=== PATIENT | female | born 1985 | race Caucasian/White ===

== ENCOUNTER 2023-12-18 14:58 | Emergency (ER) | payer SELFPAY ==
[2023-12-18 15:00] VITALS: BP 186/127; PULSE 95; RESP 16; TEMP 36.5; O2SAT 99
--- NOTE | 2023-12-18 15:06 | XR_ITS ---
WS: [id number] XR chest 1V portable 95000 REASON FOR EXAM: Chest pain FINDINGS: Chest appears similar to previous examination 05/22/2019. Mild tortuosity of the thoracic aorta. Mild cardiomegaly. Calcified granulomas disease in both hemithoraces. No acute/subacute pulmonary parenchymal or pleural abnormality. No significant abnormality of the bony thorax. XR/XR chest 1V portable 95476 IMPRESSION: Stable chest with no acute abnormality.
--- NOTE | 2023-12-18 15:07 | ECG_ITS ---
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 Measurements Intervals [place] Rate: 87 P: 47 AL: 144 QRS: 54 QRSD: 85 T: 59 QT: 342 QTc: 413 Interpretive Statements SINUS RHYTHM Poor R wave progression Compared to ECG 05/22/2019 18:13:42 Sinus tachycardia no longer present Electronically Signed On 12-18-2023 19:58:31 CDT by Yayo Perez M.D. [id number]
--- NOTE | 2023-12-18 15:14 | ED_ITS ---
HPI - Chest Pain 2 General: Chief Complaint: Chest Pain Stated Complaint: chest pain Time Seen by Provider: 12/18/23 15:01 History of Present Illness: 38-year-old female with a history of hyp ertension who presents to the emergency room with chest discomfort. She states she was getting ready for work and took a shower and when she got out she felt lightheaded and had fairly severe chest pressure. This got a little bit better. She says now she does have some mild pressure in her central chest. She says she felt like maybe her blood pressure got very high. No known cardiac history. No cough. No abdominal pain. No nausea or vomiting. No diaphoresis. No altered mental status. No focal motor deficits. Review of Systems 2 Narrative: Constitutional symptoms: Negative except as documented in HPI. Skin symptoms: Negative except as documented in HPI. Eye symptoms: Negative except as documented in HPI. ENMT symptoms: Negative except as documented in HPI. Respiratory symptoms: Negative except as documented in HPI. Cardiovascular symptoms: Negative except as documented in HPI. Gastrointestinal symptoms: Negative except as documented in HPI. Genitourinary symptoms: Negative except as documented in HPI. Musculoskeletal symptoms: Negative except as documented in HPI. Neurologic symptoms: Negative except as documented in HPI. Psychiatric symptoms: Negative except as documented in HPI. Endocrine symptoms: Negative except as documented in HPI. [facility] ED 2 Female Reproductive History: Spontaneous abortions: No Physical Exam 2 Narrative: EXAM NARRATIVE: General: Alert, no acute distress. Skin: Warm, dry. Head: Normocephalic, atraumatic. Neck: Supple, trachea midline. Eye: Extraocular movements are intact. Ears, nose, mouth and throat: mucosa moist. Cardiovascular: Regular, Normal peripheral perfusion. Respiratory: Lungs are clear to auscultation, respirations are non-labored, breath sounds are equal, Symmetrical chest wall expansion. Gastrointestinal: Soft, Nontender, Non distended Musculoskeletal: Normal ROM, no deformity. Neurological: Alert and oriented, No focal neurological deficit observed. Psychiatric: Cooperative, appropriate mood & affect. Course 2 Vital Signs: Vital signs: Vital Signs Temperature 97.7 F 12/18/23 15:00 Pulse Rate 81 12/18/23 16:40 Respiratory Rate 17 12/18/23 16:40 Blood Pressure 144/95 12/18/23 16:40 Pulse Oximetry 97 12/18/23 16:40 Oxygen Delivery Me thod Room Air 12/18/23 16:40 MDM - Chest Pain Medical Decision Making Differential diagnosis for patient with chest pain includes but is not limited to and based on the above HPI, review of systems and physical exam: Pneumonia. unstable angina. angina. Acute coronary syndrome / NV. Pulmonary embolism. Costochondritis / musculoskeletal. Pleurisy. Pericarditis. Esophageal spasm. Pancreatis. Cholecystitis. Orders placed to evaluate differential diagnosis based on the above differential, HPI and physical exam EKG: Time 1502. Rate 87. Normal sinus rhythm, No ST-T changes, no ectopy, normal [place] & QRS intervals, This was reviewed and interpreted by myself the ER physician at 1505. Repeat EKG: Time 1541. Rate 86. Normal sinus rhythm, No ST-T changes, no ectopy, normal [place] & QRS intervals, This was reviewed and interpreted by myself the ER physician at 1545. No change from previous Repeat EKG: Time 1658. Rate 81. Normal sinus rhythm, No ST-T changes, no ectopy, normal [place] & QRS intervals, This was reviewed and interpreted by myself the ER physician at 1700. No change from previous 2 EKGs Chest x-ray: No acute process. Borderline cardiomegaly. No infiltrate. No pneumothorax. This was reviewed and interpreted by myself the ER physician. Lab Review: Laboratory results were reviewed and interpreted by myself the emergency room physician. Lab work is fairly unremarkable. Mild leukocytosis with a white count of 15. Hemoglobin normal at 14.5. BUN and creatinine are normal at 13 and 0.8. Serial cardiac markers are negative. I reviewed the patient's medical record. HEART Pathway for Early Discharge in Acute Chest Pain from [employer] on 12/18/2023 All calculations should be rechecked by clinician prior to use RESULT SUMMARY: 1 points HEART Pathway Score Low risk 0.9-1.7% 30-day MACE Repeat troponin at 3 hours and if negative, discharge home with outpatient follow-up. INPUTS: History ?> 0 = Slightly suspicious EKG ?> 0 = Normal Age ?> 0 = <45 Risk factors ?> 1 = 1-2 risk factors Initial troponin ?> 0 = <=ormal limit Reexamination: Patient remained stable. No increased work of breathing. No altered mental status. No focal motor deficits. Assessment and plan: Noncardiac chest pain Hypertension ?No ischemic changes on EKG. Serial cardiac markers negative. Heart pathways shows low risk and she can follow-up with her primary care physician. ?Blood pressure has improved spontaneously - Discharged home - Discussed findings and plan with patient. Answered any questions. - All laboratory values were reviewed and interpreted personally by myself, the ER physician - All imaging was reviewed and interpreted personally by myself, the ER physician. - Evaluation and treatment of this problem were appropriate in the emergency setting Lab Data 12/18/23 15:10 12/18/23 15:10 Radiology Impressions Chest X-Ray 12/18/23 15:06 IMPRESSION: Stable chest with no acute abnormality. Laboratory Results WBC 14.87 10^3/uL (3.29-11.43) H 12/18/23 15:10 RBC 4.61 10^6/uL (3.85-5.65) 12/18/23 15:10 Hgb 14.40 g/dL (11.27-16.99) 12/18/23 15:10 Hct 42.9 % (36-47) 12/18/23 15:10 MCV 93.1 fl (85-98) 12/18/23 15:10 MCH 31.2 pg (27-33) 12/18/23 15:10 MCHC 33.6 g/dL (30-55) 12/18/23 15:10 RDW 12.8 % (12.1-15.1) 12/18/23 15:10 Plt Count 361 10^3/cmm (157-399) 12/18/23 15:10 MPV 10.5 fL (7.4-10.4) H 12/18/23 15:10 Neut % (Auto) 76.8 % 12/18/23 15:10 Lymph % (Auto) 15.1 % 12/18/23 15:10 [place] % (Auto) 4.4 % 12/18/23 15:10 Eos % (Auto) 2.6 % 12/18/23 15:10 Baso % (Auto) 0.6 % 12/18/23 15:10 Neut # (Auto) 11.41 10^3/uL (1.8-7.7) H 12/18/23 15:10 Lymph # (Auto) 2.3 10^3/uL (0.8-4.8) 12/18/23 15:10 [place] # (Auto) 0.7 10^3/uL (0.2-0.9) 12/18/23 15:10 Eos # (Auto) 0.4 10^3/uL (0.0-0.8) 12/18/23 15:10 Baso # (Auto) 0.1 10^3/uL (0.0-0.1) 12/18/23 15:10 Nucleated RBC % (auto) 0 % 12/18/23 15:10 Nucleated RBCs # 0.0 /100WBC 12/18/23 15:10 D-Dimer 0.35 ug/mLFEU (0-0.59) 12/18/23 15:10 Sodium 141 mmol/L (136-145) 12/18/23 15:10 Potassium 4.0 mmol/L (3.5-5.1) 12/18/23 15:10 Chloride 106 mmol/L (98-107) 12/18/23 15:10 Carbon Dioxide 24 mmol/L (22-29) 12/18/23 15:10 Anion Gap 15.0 (5-19) 12/18/23 15:10 BUN 13 mg/dL (6-20) 12/18/23 15:10 Creatinine 0.8 mg/dL (0.5-0.9) 12/18/23 15:10 GFR Calculation 80.7 mL/min (90-130) L 12/18/23 15:10 Glucose 102 mg/dL (65-115) 12/18/23 15:10 Calculated Osmolality 292 mOsm/kg (285-295) 12/18/23 15:10 Calcium 9.3 mg/dL (8.5-10.5) 12/18/23 15:10 Total Bilirubin 0.5 mg/dL (0.15-1.2) 12/18/23 15:10 AST 52 U/L (0-32) H 12/18/23 15:10 ALT 45 U/L (0-33) H 12/18/23 15:10 Alkaline Phosphatase 142 U/L (35-105) H 12/18/23 15:10 Troponin T Baseline < 6 ng/L (0-10) 12/18/23 15:10 Troponin T 120 Minute 6.00 ng/L (0-10) 12/18/23 16:51 Delta Troponin T 0.19133 ABS# (0-10) 12/18/23 16:51 C-Reactive Protein 10.4 mg/L (0.0-4.9) H 12/18/23 15:10 NT-Pro-B Natriuret Pep 88 pg/mL (0-125) 12/18/23 15:10 Total Protein 6.7 g/dL (6.6-8.7) 12/18/23 15:10 Albumin 4.1 g/dL (3.5-5.2) 12/18/23 15:10 Globulin 2.6 g/dL (1.3-4.6) 12/18/23 15:10 HCG, Qual Negative (Negative) 12/18/23 16:00 Urine Color Yellow (Yellow) 12/18/23 16:00 Urine Appearance Clear (CLEAR) 12/18/23 16:00 Urine pH 5 (5-7) 12/18/23 16:00 Ur Specific [place] 1.020 (1.005-1.030) 12/18/23 16:00 Urine Protein Neg (Negative) 12/18/23 16:00 Urine Glucose (UA) Norm (Normal) 12/18/23 16:00 Urine Ketones Negative (Negative) 12/18/23 16:00 Urine Blood 3+ (Negative) H 12/18/23 16:00 Urine Nitrate Negative (Negative) 12/18/23 16:00 Urine Bilirubin Neg (Negative) 12/18/23 16:00 Urine Urobilinogen Norm mg/dL (Negative) 12/18/23 16:00 Ur Leukocyte Esterase Negative (Negative) 12/18/23 16:00 Urine RBC 0-4 /hpf (0-2) H 12/18/23 16:00 Urine WBC 0-4 /hpf (0-5) H 12/18/23 16:00 Ur Squamous Epith Cells 5-10 /hpf (0-5) H 12/18/23 16:00 Amorphous Sediment Not Reportable 12/18/23 16:00 Urine Bacteria 1+ /hpf (NONE) H 12/18/23 16:00 All radiology interpretation(s) finalized by discharge Discharge Plan Discharge Patient Disposition: Home Clinical Impression: Non-cardiac chest pain, Hypertension Condition: Stable Prescriptions: No Action lisinopril 20 mg tablet 20 mg PO DAILY Qty: 90 1RF hydrochlorothiazide 25 mg tablet 25 mg PO DAILY Qty: 90 1RF metronidazole 500 mg tablet 500 mg PO TID Qty: 30 0RF escitalopram oxalate [Lexapro] 10 mg tablet 10 mg PO DAILY Qty: 90 0RF labetalol 100 mg tablet See Rx Instructions .ROUTE .COMPLEX Qty: 60 1RF Dose Instruction: TAKE ONE TABLET BY MOUTH TWICE DAILY Rx Instructions: TAKE ONE TABLET BY MOUTH TWICE DAILY Discharge Orders: Discharge ED (Routine); Ordered 12/18/23 Ordered By: Rohini Bauer Referrals: Edilia Wilcox FNP [Primary Care Provider] - 1-3 days Rosana Card DO [Family Provider] - Discharge Diet: Usual diet Discharge Activity: Increase activity as tolerated Patient Instructions: Noncardiac Chest Pain (ED) Activity Restrictions/Additional Instructions: Thank you for choosing [facility] for your healthcare needs today. Please realize this is an emergency room and that we are providing you with a medical screening exam and this may not be complete and all inclusive of all the testing and or work up that you may need to determine your ailment or severity of your illness. You have been screened and evaluated and felt safe for discharge. Health conditions do change or evolve sometimes and as such it is important that you follow up with your Primary Doctor to be re checked, 3-5 days is a general good time frame for follow up. You are always welcome to return to the ED for re assessment if your symptoms are worsening or you have new concerns Coding Level of Care Code ED Survey Research Professor for Jose C Ascencio
[2023-12-18 15:27] LABS: Basophils # 0.1 10^3/uL (0.0-0.1); Basophils % 0.6 %; Eosinophils # 0.4 10^3/uL (0.0-0.8); Eosinophils % 2.6 %; Hematocrit 42.9 % (36-47); Lymphocytes # 2.3 10^3/uL (0.8-4.8); Lymphocytes % 15.1 %; Mean Corpuscular HGB Conc 33.6 g/dL (30-55); Mean Corpuscular Hemoglobin 31.2 pg (27-33); Mean Corpuscular Volume 93.1 fl (85-98); Mean Platelet Volume 10.5 fL (7.4-10.4); Monocytes # 0.7 10^3/uL (0.2-0.9); Monocytes % 4.4 %; Neutrophils # 11.41 10^3/uL (1.8-7.7); Neutrophils % 76.8 %; Nucleated Red Blood Cells % 0 %; Platelet Count 361 10^3/cmm (157-399); Red Blood Count 4.61 10^6/uL (3.85-5.65); Red Cell Distribution Width 12.8 % (12.1-15.1); White Blood Count 14.87 10^3/uL (3.29-11.43)
[2023-12-18 15:30] VITALS: BP 168/103; PULSE 90; RESP 13; O2SAT 95
[2023-12-18 15:41] VITALS: BP 143/105; PULSE 94; RESP 22; O2SAT 97
[2023-12-18 15:50] LABS: D Dimer 0.35 ug/mLFEU (0-0.59)
[2023-12-18 15:58] LABS: Troponin(5th) Baseline < 6 ng/L (0-10)
[2023-12-18 16:07] LABS: Alanine Aminotransferase 45 U/L (0-33); Albumin Level 4.1 g/dL (3.5-5.2); Alkaline Phosphatase 142 U/L (35-105); Aspartate Amino Transferase 52 U/L (0-32); Blood Urea Nitrogen 13 mg/dL (6-20); C Reactive Protein 10.4 mg/L (0.0-4.9); Calcium 9.3 mg/dL (8.5-10.5); Carbon Dioxide 24 mmol/L (22-29); Chloride 106 mmol/L (98-107); Globulin 2.6 g/dL (1.3-4.6); Glomerular Filtration Rate 80.7 mL/min (90-130); Glucose 102 mg/dL (65-115); NT Pro B Type Natriuretic Pept 88 pg/mL (0-125); Osmolality Calculated 292 mOsm/kg (285-295); Sodium 141 mmol/L (136-145); Total Bilirubin 0.5 mg/dL (0.15-1.2); Total Protein 6.7 g/dL (6.6-8.7)
[2023-12-18 16:22] LABS: HCG Qualitative Urine. Negative (Negative)
[2023-12-18 16:30] LABS: Bacteria Urine 1+ /hpf; Bilirubin Urine Neg (Negative); Blood Urine 3+ (Negative); Glucose Urine UA Norm (Normal); Ketones Urine Negative (Negative); Leukocyte Esterase Urine Negative (Negative); Nitrate Urine Negative (Negative); Protein Urine Neg (Negative); RBC Urine 0-4 /hpf (0-2); Urine Appearance Clear (CLEAR); Urine Color Yellow (Yellow); Urobilinogen Urine Norm (Negative); WBC Urine 0-4 /hpf (0-5); pH Urine 5 (5-7)
[2023-12-18 16:40] VITALS: BP 144/95; PULSE 81; RESP 17; O2SAT 97
--- NOTE | 2023-12-18 17:07 | ECG_ITS ---
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 Measurements Intervals [place] Rate: 81 P: 40 ID: [id number] QRS: 29 QRSD: 86 T: 37 QT: 368 QTc: 429 Interpretive Statements SINUS RHYTHM Compared to ECG 12/18/2023 15:41:52 No significant changes Electronically Signed On 12-18-2023 20:00:41 CDT by Yayo Perez M.D. [id number]
[2023-12-18 17:22] LABS: Troponin 5 2HR Delta 0.00001 ABS# (0-10)
== END 2023-12-18 18:03 | disposition home or self-care (01) ==
PROVIDERS: Emergency Provider Emergency Medicine; Family Provider Family Medicine; PCP Nurse Practitioner
DX: R07.89 Other chest pain (principal); I10 Essential (primary) hypertension
CPT/HCPCS: 71045; 80053; 81001; 81025; 83880; 84484; 85025; 85378; 86140; 93005; 99285

== ENCOUNTER → 2023-12-22 14:17 | Outpatient (BNVA) | payer SELFPAY | PROVIDERS: Family Provider Family Medicine; PCP Nurse Practitioner; Visit Provider Nurse Practitioner | DX: I10 Essential (primary) hypertension (principal) | CPT/HCPCS: 80053; 81000; 83036; 87086 ==

== ENCOUNTER 2024-01-07 06:00 | Outpatient (CLI) | payer SELFPAY | END 2024-01-07 06:01 | disposition home or self-care (01) | LOC: RAD 02-02 06:16 | PROVIDERS: PCP Nurse Practitioner; Visit Provider Nurse Practitioner | DX: R74.8 Abnormal levels of other serum enzymes (principal) | CPT/HCPCS: 86705; 86706; 86709; 86803; 87340 ==

== ENCOUNTER → 2024-02-09 10:14 | Outpatient (BNVA) | payer SELFPAY | PROVIDERS: Family Provider Family Medicine; PCP Nurse Practitioner; Visit Provider Nurse Practitioner Women's Health | DX: Z12.4 Encounter for screening for malignant neoplasm of cervix (principal) | CPT/HCPCS: 87624 ==

== ENCOUNTER → 2024-09-01 11:46 | Outpatient (BNVA) | payer MEDICAID, SELFPAY | PROVIDERS: Family Provider Family Medicine; PCP Nurse Practitioner; Visit Provider Nurse Practitioner Women's Health | DX: N92.6 Irregular menstruation, unspecified (principal); O03.9 Complete or unspecified spontaneous abortion without complication | CPT/HCPCS: 81025; 82670; 83001; 83002; 83036; 83520; 83525; 84146; 84402; 84403 ==

== ENCOUNTER → 2024-10-03 11:01 | Outpatient (BNVA) | payer MEDICAID, SELFPAY | PROVIDERS: Family Provider Family Medicine; PCP Nurse Practitioner; Visit Provider Nurse Practitioner Women's Health | DX: N83.291 Other ovarian cyst, right side (principal) | CPT/HCPCS: 76830 ==

== ENCOUNTER → 2024-10-05 09:43 | Outpatient (BNVA) | payer MEDICAID, SELFPAY | PROVIDERS: Family Provider Family Medicine; PCP Nurse Practitioner; Visit Provider Nurse Practitioner Women's Health | DX: N83.209 Unspecified ovarian cyst, unspecified side (principal) | CPT/HCPCS: 86304 ==

== ENCOUNTER 2024-10-28 16:59 | Emergency (ER) | payer MEDICAID, SELFPAY ==
[2024-10-28 17:00] VITALS: BP 170/116; PULSE 82; RESP 16; TEMP 36.3; O2SAT 98; BMI 40.3
--- NOTE | 2024-10-28 17:09 | ECG_ITS ---
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
--- NOTE | 2024-10-28 20:30 | W.ED.GENADLT ---
HPI - General Adult General: Chief complaint: General Medical Stated complaint: high bp Time Seen by Provider: 10/28/24 20:03 History of Present Illness: 39-year-old female presents to the ED with concern for hypertension. Patient was seen yesterday at [facility] where her blood pressure was noted to be 159/115. Today, she visited [facility] for medication refills where her blood pressure was recorded at 190/45, and later increased to approximately 200 systolic. At the clinic, she received Catapres and an injection for headaches. After 45 minutes, her blood pressure was rechecked at 215, prompting referral to the ED. Patient denies any current symptoms. She reports a history of headaches which may be related to recent Depo shot. Patient is being evaluated for hysterectomy due to multiple gynecological conditions including PCOS, right ovarian cyst, fibroids, and endometriosis. She reports significant pelvic pain but denies vaginal bleeding. Related Data Previous Rx's ?Medication ?Instructions ?Recorded fluticasone propionate 50 2 spray intranasal DAILY #16 grams 05/14/24 mcg/actuation nasal spray,suspension (Flonase Allergy Relief) escitalopram oxalate 10 mg tablet 10 mg PO DAILY #90 tabs 05/26/24 (Lexapro) hydrochlorothiazide 25 mg tablet 25 mg PO DAILY #90 tabs 05/26/24 lisinopril 20 mg tablet 20 mg PO DAILY #90 tabs 05/26/24 metoprolol tartrate 25 mg tablet 25 mg PO BID #60 tabs 05/27/24 drospirenone 3 mg-ethinyl 1 tab PO DAILY #28 tabs 10/05/24 estradiol 0.02 mg tablet (LILIANE (28)) Allergies Allergy/AdvReac Type Severity Reaction Status Date / Time Sulfa (Sulfonamide Allergy Mild ALGY-Difficulty Verified 10/12/24 06:44 Antibiotics) Breathing [facility] ED PFSH: Family History Denies family history of Colon cancer Ovarian cancer Diabetes Heart disease Breast cancer Hypertension Uterine cancer Thyroid disease Stroke Social History Smoking and tobacco/nicotine status: never used tobacco/nicotine Female Reproductive History: Spontaneous abortions: No Course Vital Signs: Vital signs: Vital Signs Temperature 97.4 F L 10/28/24 17:00 Pulse Rate 82 10/28/24 17:00 Respiratory Rate 16 10/28/24 17:00 Blood Pressure 170/116 10/28/24 17:00 Pulse Oximetry 98 10/28/24 17:00 Oxygen Delivery Me thod Room Air 10/28/24 17:00 MDM - General Adult Medical Decision Making ROS: Constitutional: Denies fever, chills, or fatigue Cardiovascular: Denies chest pain or shortness of breath Neurological: Reports history of headaches All other systems reviewed and negative MEDICATIONS AND ALLERGIES: Current Medications: - Metoprolol 25mg twice daily - Hydrochlorothiazide 25mg daily - Lisinopril 20mg daily - Escitalopram (dose not specified) Allergies: None reported PAST HISTORICAL DATA: Past Medical History: - Hypertension - PCOS - Ovarian cyst (right side) - Uterine fibroids - Endometriosis Past Surgical History: None reported Gynecological History: - Currently being evaluated for hysterectomy - Recent Depo shot administration VITAL SIGNS: BP: 139/98 HR: 76 Other vital signs not reported PHYSICAL EXAM: General: Alert, non-toxic appearing, in no acute distress HEENT: Head normocephalic and atraumatic. Mucous membranes moist Neck: Supple Respiratory: Clear breath sounds bilaterally. No increased work of breathing, no wheezing Cardiac: Regular rate and rhythm, equal pulses in all four extremities Abdomen: Soft, non-distended, no rebound or guarding Neuro: Cranial nerves grossly intact, no focal motor or sensory deficits noted INITIAL IMPRESSION AND PLAN: Given the history and presentation, the primary working diagnosis is Hypertension with recent elevated readings but currently improved. Additional considerations include medication non-compliance and secondary causes of hypertension. Plan: 1. Increase lisinopril to 40mg daily 2. Continue current doses of metoprolol and hydrochlorothiazide 3. Close follow-up with PCP on Thursday TEST INTERPRETATIONS: Labs were drawn at [facility] today - results pending PROCEDURES: None performed CONSIDERED BUT NOT PERFORMED: Labs and imaging were considered but not performed due to: - Patient is currently asymptomatic - Recent labs drawn today at clinic - Blood pressure significantly improved - No evidence of end-organ damage FINAL IMPRESSION: Based on all the above, my clinical impression is most compatible with Hypertension with recent elevated readings, now improved with medication adjustment. The clinical picture is not currently suggestive of hypertensive emergency or urgency. Although other conditions were also considered, they were deemed unlikely based on the clinical information available. CLINICAL DISPOSITION: The patient's current condition is stable in my estimation and the most appropriate and indicated disposition at this time is discharge home with medication adjustment and close follow-up. Rationale for Discharge: Patient is appropriate for discharge given: - Current blood pressure has improved to near normal range - Complete absence of symptoms - No evidence of end-organ damage - Has close follow-up already scheduled with PCP in 3 days - Clear understanding of return precautions RISK STRATIFICATION AND CLINICAL DECISION RULES APPLIED: No formal clinical decision rules were applicable to this case. Risk stratification was based on: - Absence of end-organ damage symptoms - Improvement in blood pressure readings - Presence of close follow-up CASE SUMMARY: 39-year-old female with history of hypertension presented to ED after being referred from [facility] due to elevated blood pressure readings. Patient had been seen at [facility] yesterday and primary care today where blood pressures were noted to be elevated, reaching as high as 200 systolic. After receiving medication at the clinic, she was referred to ED for evaluation. Upon arrival, blood pressure had improved to 139/98. Patient remained asymptomatic throughout. After evaluation, medication adjustment was made with increase in lisinopril dosage. Patient was discharged home with close follow-up. No radiology studies performed this visit Discharge Plan Discharge Patient Disposition: Home Clinical Impression: Essential hypertension Condition: Stable Prescriptions: No Action fluticasone propionate [Flonase Allergy Relief] 50 mcg/actuation spray,suspension 2 spray intranasal DAILY Qty: 16 0RF Rx Instructions: administer into each nostril escitalopram oxalate [Lexapro] 10 mg tablet 10 mg PO DAILY Qty: 90 3RF hydrochlorothiazide 25 mg tablet 25 mg PO DAILY Qty: 90 1RF lisinopril 20 mg tablet 20 mg PO DAILY Qty: 90 1RF drospirenone-ethinyl estradiol [LILIANE (28)] 3-0.02 mg tablet 1 tab PO DAILY Qty: 28 0RF metoprolol tartrate 25 mg tablet 25 mg PO BID Qty: 60 1RF Discharge Orders: Discharge ED (Routine); Ordered 10/28/24 Ordered By: Felix Londono Referrals: Ely Hardy FNP [Primary Care Provider] Discharge Diet: Low Salt Discharge Activity: Resume usual activity Patient Instructions: Chronic Hypertension (DC), Opioid Safety, Pain Management Activity Restrictions/Additional Instructions: DISCHARGE INSTRUCTIONS: You have been diagnosed with elevated blood pressure that has now improved. We are increasing your lisinopril to 40mg daily. Take an additional 20mg dose tonight, then start the 40mg daily dose tomorrow morning. Continue all other medications as prescribed. Return to the Emergency Department immediately if you develop chest pain, shortness of breath, severe headache, vision changes, confusion, or any other concerning symptoms. Keep your scheduled follow-up appointment with Dr. Hardy on Thursday. Continue to monitor your blood pressure at home if possible. 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
[2024-10-28 21:04] VITALS: BP 138/87; PULSE 74; RESP 17; O2SAT 97
== END 2024-10-28 21:05 | disposition home or self-care (01) ==
PROVIDERS: Emergency Provider Student in an Organized Health Care Education/Training Program; PCP Nurse Practitioner Family
DX: I10 Essential (primary) hypertension (principal)
CPT/HCPCS: 93005; 99283